=== PATIENT | female | born 1965 | race Caucasian/White ===

== ENCOUNTER → 2018-01-01 10:23 | Outpatient (CLI) | payer BC, SELFPAY ==
--- NOTE | 2018-01-01 10:32 | US_ITS ---
US abdomen limited HISTORY: Right upper quadrant pain. Nausea. ORDERING PHYSICIAN: Jadyn Pierce MD PATIENT AGE: 52 years Comparison: . May 30, 2016 right upper quadrant ultrasound PROCEDURE Sagittal, transverse and decubitus imaging of the gallbladder was performed. FINDINGS GALLBLADDER - No stones are evident. There is no gallbladder wall thickening. Common duct is normal in diameter. FINDINGS Pancreas. Appears satisfactory. No significant findings. Liver. No focal lesion. No biliary ductal dilatation. Minor diffuse fatty changes liver Portal vein normal Gallbladder. Sludge. 5 mm polyp again noted at the superior wall gallbladder. Similar to previous study. Upper normal gallbladder wall thickness again noted.. Right kidney appears normal in morphology. Normal in size 10 .5 cm length. Common duct normal diameter 4.1 mm at hilum of liver IMPRESSION: ... 1. There is a 5 mm gallbladder polyp again noted measures. ... No shadowing gallstones. Minimal sludge Gallbladder wall upper normal thickness . 2. Liver. Mild fatty changes.
--- NOTE | 2018-01-01 10:33 | NM_ITS ---
HEPATOBILIARY SCAN WITH FATTY MEAL/ENSURE ORDERING PHYSICIAN : Jadyn Pierce MD PATIENT AGE: 52 years GENDER: Female HISTORY: Right upper quadrant pain and nausea Following 8.26 millicuries Tc Choletec, images of the RUQ were obtained. There is prompt uptake of radionuclide by the liver which is grossly unremarkable. Small bowel is visualized. This initial portion of the study is normal. The gallbladder was allowed to fill out to 60 minutes. Fatty meal/1 can of ensure over administered with imaging performed over 60 minutes minutes. Thereafter. The obtain data was analyzed and reveals a 22% % abnormal low gallbladder ejection fraction (normal greater than 50%; borderline 35-50%). This is normal value No pain after fatty meal . Visual inspection which supports that there is minimal contraction of the gallbladder as well as,. IMPRESSION: Abnormal functioning gallbladder. 22% % % gallbladder ejection fraction, following fatty meal. No pain with fatty meal.
--- NOTE | 2018-01-01 11:02 | HMH.ITSHM ---
Current Home Medications as stated by this patient Maria Esther Kimbrough or underwriting sales representative. []LISIN[facility]
== END ==
PROVIDERS: PCP Family Medicine; Visit Provider Family Medicine
DX: R10.11 Right upper quadrant pain (principal)
CPT/HCPCS: 76705; 78226; A9537

== ENCOUNTER → 2018-02-19 09:43 | Outpatient (CLI) | payer BC, SELFPAY ==
[2018-02-19 10:01] LABS: Basophils % 0.5 % (0.1-2.0); Eosinophils # 0.1 K/mm3 (0.0-0.4); Eosinophils % 1.2 % (0.1-12.0); Hematocrit 39.9 % (37.0-47.0); Hemoglobin 13.2 g/dL (12.2-16.2); Lymphocytes # 2.5 K/mm3 (0.7-4.5); Lymphocytes % 32.1 % (10-50); Mean Corpuscular HGB Conc 33.1 g/dL (31.8-35.4); Mean Corpuscular Hemoglobin 29.4 pg (27.0-31.2); Mean Corpuscular Volume 88.9 fl (81-99); Monocytes # 0.4 K/mm3 (0.1-1.0); Monocytes % 5.6 % (1.7-9.3); Neutrophils # 4.8 K/mm3 (1.8-7.8); Neutrophils % 60.5 % (37.0-80.0); Platelet Count 334 K/mm3 (142-424); Red Blood Count 4.49 M/mm3 (4.20-5.40); Red Cell Distribution Width 13.8 % (11.5-17.5); White Blood Count 7.9 K/mm3 (4.8-10.8)
[2018-02-19 10:03] LABS: Urine Pregnancy, HCG Qual. Negative (Negative)
[2018-02-19 11:17] LABS: Alanine Aminotransferase 19 U/L (12-78); Albumin Level 3.6 gm/dL (3.4-5.0); Albumin/Globulin Ratio 0.9 (1.1-1.8); Alkaline Phosphatase 118 U/L (46-116); Anion Gap 14.3 mEq/L (5-15); Aspartate Amino Transferase 16 U/L (15-37); Bilirubin,Total 0.4 mg/dL (0.2-1.0); Blood Urea Nitrogen 16 mg/dL (7-18); Calcium 8.8 mg/dL (8.5-10.1); Carbon Dioxide 28 mmol/L (21.0-32.0); Chloride 101 mmol/L (98-107); Creatinine,Serum 0.85 mg/dL (0.55-1.02); Estimated Glomerular Filt Rate 70 ml/min (>60); GFR (African American) 85 ML/MIN (>60); Globulin 3.8 gm/dl (1.3-3.2); Glucose 117 mg/dL (74-106); Potassium 4.3 mmoL/L (3.5-5.1); Sodium 139 mmol/L (136-145); Total Protein,Serum 7.4 gm/dL (6.4-8.2)
== END ==
PROVIDERS: PCP Family Medicine; Visit Provider Surgery
DX: K82.9 Disease of gallbladder, unspecified (principal)
CPT/HCPCS: 36415; 80053; 81025; 85025; 93005

== ENCOUNTER → 2018-11-20 14:02 | Outpatient (CLI) | payer BC, SELFPAY | PROVIDERS: PCP Physician Assistant; Visit Provider Physician Assistant | DX: G47.30 Sleep apnea, unspecified (principal); I10 Essential (primary) hypertension; R06.83 Snoring; R53.83 Other fatigue | CPT/HCPCS: G0399 ==

== ENCOUNTER → 2018-12-20 19:55 | Outpatient (CLI) | payer BC, SELFPAY | PROVIDERS: PCP Family Medicine; Visit Provider Nurse Practitioner Family | DX: G47.30 Sleep apnea, unspecified (principal); I10 Essential (primary) hypertension; R40.0 Somnolence; R06.83 Snoring; R51 Headache; E66.9 Obesity, unspecified | CPT/HCPCS: 95810 ==

== ENCOUNTER → 2018-12-31 16:17 | Outpatient (CLI) | payer BC, SELFPAY ==
--- NOTE | 2018-12-31 16:22 | MM_ITS ---
PROCEDURE: MM DIG SCREENING MAMM BI W/CAD Patient Age:53Y CLINICAL INDICATION: SCREENING 53-year-old. Uses Premarin patch but previous stereotactic biopsy right breast. No new areas of concern clinically but noncontributory family history. COMPARISON: DIGMAMMS MAMMOGRAM SCREEN-CARE ASSISTANT N/C from 07/04/2006 DIGMAMMS MAMMOGRAM SCREEN-CARE ASSISTANT N/C from 09/20/2007 DMSB DIG MAMM-SCREEN CHATO W/CAD from 02/11/2016 TECHNIQUE: Standard CC and MLO images were obtained. R2 CAD reviewed. Additional axillary CC view included on left FINDINGS: Areas of moderately dense heterogeneous breast tissue bilaterally, most evident at the central and upper outer quadrant regions both breast. Wendy is somewhat limited in in areas of increased breast density is seen here. The digital mammogram from January 2016 most useful. The film screen studies prior to this suggest arm appear much denser and of limited comparison value Right breast: No new areas of significant concern when compared to prior mammograms-specifically the 2015 digital mammogram most useful Left breast. Overall architecture and small areas of density seen today seem to be similar to previous studies with no definitive change. No new particularly suspicious areas but overall bilateral follow-up 1 year adequate but should be encouraged and emphasized . Also in this dense breast if any palpable areas arise low threshold for ultrasound of would be recommended-as ultrasound is a useful complement/augment to mammography in areas of moderately dense heterogeneous breast as seen here areas IMPRESSION: No dominant nor suspicious new mass . Overall stable mammogram. Bilateral follow-up 1 year recommended and would be emphasized, encouraged. Areas moderate dense heterogeneous breast bilaterally again noted; mammography is of decreased sensitivity in this setting. Ultrasound can be useful augment/complement breast this density particular if any palpable areas arise BI-RAD Category: 2 Benign Finding(s) FOLLOW-UP: 1YR 1 Year Follow-up (A letter has been sent to the patient regarding results of the study.) Dictated by: Elbert Gaitan MD 01/03/2019 08:38 Electronically signed by Elbert Gaitan MD in [place] 01/03/2019 08:38
== END ==
PROVIDERS: PCP Family Medicine; Visit Provider Family Medicine
DX: Z12.31 Encounter for screening mammogram for malignant neoplasm of breast (principal)
CPT/HCPCS: 77067

== ENCOUNTER → 2020-01-03 10:17 | Outpatient (CLI) | payer BC, SELFPAY ==
--- NOTE | 2020-01-03 10:20 | MM_ITS ---
PROCEDURE: MM DIG SCREENING MAMM BI W/CAD Digital Breast Tomosynthesis Included CLINICAL INDICATION: SCREENING There is no personal or family history of breast cancer. There has been a previous biopsy right breast for benign disease. COMPARISON: MG DIGMAMMS MAMMOGRAM SCREEN-MOLECULAR BIOLOGY PROFESSOR N/C from 09/20/2007 MG DMSB DIG MAMM-SCREEN CHATO W/CAD from 02/11/2016 MG MM DIG SCREENING MAMM BI W/CAD from 12/31/2018 TECHNIQUE: Standard CC and MLO images and 3D Tomosynthesis was obtained. R2 CAD reviewed. FINDINGS: There is a markedly dense and heterogenic parenchymal pattern bilaterally. Romelia images are most helpful in this type of dense breast parenchyma. There are couple of benign-appearing microcalcifications right breast. There is a small nodular density lower central portion left breast only definitely seen on the romelia images 5 to 6 o'clock position. This likely is a cyst possibly small fibroadenoma but recommend the patient return for spot compression views and ultrasound for additional evaluation. IMPRESSION: Markedly dense and heterogenic parenchymal pattern with possible new nodular lesion left breast BI-RAD Category: 0 Need Additional Imaging Evaluation FOLLOW-UP: IMM Immediate Follow-up Recommended (A letter has been sent to the patient regarding results of the study.) Dictated by: Dr. Atul Perry MD 01/10/2020 12:01 Dr. Atul Perry MD in [place] 01/10/2020 12:01
[2020-01-03 12:57] LABS: Hemoglobin A1C 6.2 % (4.0-6.0)
[2020-01-03 13:47] LABS: Alanine Aminotransferase 34 U/L (12-78); Albumin Level 4.2 g/dl (3.5-5.0); Albumin/Globulin Ratio 1.4 (1.1-1.8); Alkaline Phosphatase 135 U/L (38-126); Anion Gap 13.9 mEq/L (5-15); Aspartate Amino Transferase 36 U/L (14-36); Bilirubin,Total 0.5 mg/dl (0.2-1.3); Blood Urea Nitrogen 15 mg/dl (7-17); Calcium 9.6 mg/dl (8.4-10.2); Carbon Dioxide 28 mmol/L (22.0-30.0); Chloride 99 mmol/L (98-107); Chol/HDL Ratio 4.3 (1-3.5); Cholesterol 219 mg/dl (140-200); Estimated Glomerular Filt Rate 87 ml/min (>60); GFR (African American) 106 ML/MIN (>60); Glucose 115 mg/dl (74-100); HDL Cholesterol 51 mg/dl (40-60); Potassium 3.9 mmoL/L (3.5-5.1); Sodium 137 mmol/L (136-145); Total Protein,Serum 7.2 g/dl (6.3-8.2); Triglycerides 306 mg/dl (30-150); VLDL Cholesterol 61 mg/dL (0-40)
[2020-01-03 13:58] LABS: Direct LDL Cholesterol 129.31 mg/dL (100-129)
== END ==
PROVIDERS: PCP Family Medicine; Visit Provider Nurse Practitioner Family
DX: Z12.31 Encounter for screening mammogram for malignant neoplasm of breast (principal)
CPT/HCPCS: 36415; 77063; 77067; 80053; 80061; 83036

== ENCOUNTER → 2020-04-08 13:42 | Outpatient (CLI) | payer BC, SELFPAY ==
--- NOTE | 2020-04-08 13:46 | MM_ITS ---
PROCEDURE: MM DIG MAMM DX UNILAT LT CAD Digital Breast Tomosynthesis Included CLINICAL INDICATION: ABN MAMM . COMPARISON: MG DMSB DIG MAMM-SCREEN CHATO W/CAD from 02/11/2016 MG MM DIG SCREENING MAMM BI W/CAD from 12/31/2018 MG MM DIG SCREENING MAMM BI W/CAD from 01/03/2020 US US BREAST LT COMPLETE from 04/08/2020 TECHNIQUE: Standard CC and MLO images and 3D Tomosynthesis was obtained. R2 CAD reviewed. Additional spot compression MLO and CC views were obtained. FINDINGS: The nodular density lower outer quadrant left breast is again seen unchanged in size and overall appearance from the previous mammogram 01/03/2020. Ultrasound performed the same date shows a small oval hypoechoic solid lesion at this location suggestive of a fibroadenoma with well-defined borders. IMPRESSION: Basically stable follow-up problem solving views and ultrasound findings suggesting a solid benign lesions such as a fibroadenoma and recommend the patient return for normal yearly screening in 6 months and the patient should probably have a follow-up ultrasound at that time as well to evaluate for interval stability. BI-RAD Category: 2 Benign Finding(s) FOLLOW-UP: 6M 6Month Follow-up to return to normal yearly screening schedule (A letter has been sent to the patient regarding results of the study.) Dictated by: Dr. Atul Perry MD 04/15/2020 07:38 Dr. Atul Perry MD in [place] 04/15/2020 07:38
--- NOTE | 2020-04-08 13:48 | US_ITS ---
PROCEDURE: US BREAST LT COMPLETE CLINICAL INDICATION: ABN MAMM COMPARISON: No exams were available for comparison FINDINGS: Diffuse somewhat heterogenic echogenicity is seen throughout the breast. There is a well-defined hypoechoic oval lesion at the 4 o'clock position mid breast measuring 1.2 cm in greatest long axis diameter with a well-defined interface between the lesion and the surrounding breast parenchyma and this likely is a small fibroadenoma. No other abnormality is seen. There are 2 normal appearing nodes in the axilla. IMPRESSION: Probable fibroadenoma but suggest the patient have a six-month follow-up ultrasound at the time of the next mammogram to assure interval stability Dictated by: Dr. Atul Perry MD 04/15/2020 07:41 Dr. Atul Perry MD in [place] 04/15/2020 07:41
== END ==
PROVIDERS: PCP Family Medicine; Visit Provider Family Medicine
DX: R92.8 Other abnormal and inconclusive findings on diagnostic imaging of breast (principal)
CPT/HCPCS: 76641; 77061; 77065; G0279

== ENCOUNTER → 2020-11-13 14:32 | Outpatient (CLI) | payer BC, SELFPAY ==
--- NOTE | 2020-11-13 14:38 | US_ITS ---
PROCEDURE: US BREAST LT COMPLETE CLINICAL INDICATION: ABN MAMM COMPARISON: US US BREAST LT COMPLETE from 04/08/2020 FINDINGS: Again noted is a well-defined hypoechoic solid nodule 4 o'clock position mid breast with homogeneous internal echoes and most consistent with a fibroadenoma. Is basically unchanged in size and overall appearance from the previous exam. There is a normal appearing node in the axilla. IMPRESSION: Stable benign-appearing solid nodule likely fibroadenoma recommend the patient continue with yearly screening mammography Dictated by: Dr. Atul Perry MD 11/20/2020 08:15 Dr. Atul Perry MD in [place] 11/20/2020 08:15
--- NOTE | 2020-11-13 14:38 | MM_ITS ---
PROCEDURE: MM DIG MAMM BI DX W/CAD Digital Breast Tomosynthesis Included CLINICAL INDICATION: ABN MAMM There is no personal or family history of breast cancer. There has been a previous biopsy right breast for benign disease. COMPARISON: MG MM DIG SCREENING MAMM BI W/CAD from 12/31/2018 MG MM DIG SCREENING MAMM BI W/CAD from 01/03/2020 MG MM DIG MAMM DX UNILAT LT CAD from 04/08/2020 US US BREAST LT COMPLETE from 04/08/2020 US US BREAST LT COMPLETE from 11/13/2020 ultrasound left breast 11/13/2020 TECHNIQUE: Standard CC and MLO images and 3D Tomosynthesis was obtained. R2 CAD reviewed. FINDINGS: Prominent diffuse heterogenic fibroglandular densities are seen throughout both breast as noted previously. The asymmetric nodular density lower left breast is stable and unchanged in size and appearance from the previous exam. Ultrasound performed same date shows well demarcated hypoechoic solid nodule 4 o'clock position mid breast with internal echoes unchanged in overall size and appearance from the previous exam and typical of a fibroadenoma. There is no new or suspicious lesion in either breast no suspicious microcalcifications. IMPRESSION: Diffusely dense parenchymal pattern stable benign-appearing nodular density left breast BI-RAD Category: 2 Benign Finding(s) FOLLOW-UP: 1YR 1 Year Follow-up (A letter has been sent to the patient regarding results of the study.) Dictated by: Dr. Atul Perry MD 11/20/2020 08:14 Dr. Atul Perry MD in [place] 11/20/2020 08:14
== END ==
PROVIDERS: PCP Family Medicine; Visit Provider Physician Assistant
DX: R92.8 Other abnormal and inconclusive findings on diagnostic imaging of breast (principal)
CPT/HCPCS: 76641; 77062; 77066; G0279

== ENCOUNTER → 2020-12-22 09:58 | Outpatient (CLI) | payer BC, SELFPAY | PROVIDERS: Visit Provider Surgery | DX: Z01.812 Encounter for preprocedural laboratory examination (principal); Z11.52 Encounter for screening for COVID-19; Z12.11 Encounter for screening for malignant neoplasm of colon | CPT/HCPCS: C9803; U0003; U0005 ==

== ENCOUNTER 2020-12-24 07:19 | Day surgery (SDC) | payer BC, SELFPAY ==
[2020-12-22 13:47] VITALS: BMI 39.3
[2020-12-24 07:40] VITALS: BP 133/65; PULSE 71; RESP 18; TEMP 36.8; O2SAT 96
[2020-12-24 08:28] LABS: Urine Pregnancy, HCG Qual. Negative (Negative)
[2020-12-24 08:34] VITALS: O2SAT 97
--- NOTE | 2020-12-24 09:14 | P.PCN_ITS ---
- Procedure: Date: 12/24/20 Patient Date of :: 1965 Procedure Performed:: Colonoscopy with polypectomy Indications:: Screening Performing Provider:: Dereje Latham MD Referring Provider:: . Sedation:: Monitored anesthesia care Procedure:: After informed consent was obtained the patient was taken to the endoscopy suite. Sedation ensued after the patient was transferred to the left lateral decubitus position. Pulse, blood pressure, and oxygen saturation were monitored throughout the procedure. Digital rectal exam revealed no significant ab normality. The colonoscope was placed in position. The entire colon was evaluated. The colonoscope was carefully removed and the patient was transferred to recovery in stable condition. Please see findings and specimens below for detail. Findings:: Bowel preparation moderate Moderate spasticity and lack of relaxation Mild hemorrhoidal cushions Scattered diverticulosis (mostly sigmoid) Complex lobulated polyps (see specimens) Specimens:: Sessile lobulated hepatic flexure polyp (cold snare) Lobulated sessile polyp at 20 cm (cold snare) Recommendations:: Timing of repeat colonoscopy is pending pathology but will likely be between 2-3 years secondary to nature of polyps, moderate bowel preparation, and moderate spasticity/lack of relaxation. Complications:: No immediate Estimated blood obtained (mL): 1
[2020-12-24 09:16] VITALS: BP 134/73; PULSE 76; RESP 16; TEMP 36.2; O2SAT 94
[2020-12-24 09:26] VITALS: BP 130/78; PULSE 70; RESP 16; O2SAT 97
[2020-12-24 09:36] VITALS: BP 135/68; PULSE 67; RESP 16; O2SAT 99
[2020-12-24 09:46] VITALS: BP 140/77; PULSE 66; RESP 16; O2SAT 99
--- NOTE | 2020-12-24 10:28 | P.PN_ITS ---
[facility] Anesthesia Checklist - Patient Identification Patient Identification: Arm Band, Verbal (Name & ) - Structural Data Admitted From: Home Planned Operative Procedure/s: Colonoscopy Consent for Planned Operative Procedure(s) Verified: Yes Verified Documents: Surgical Consent - NPO Status Verified Time NPO: 00:00 - Additional verifications Anesthesia Reactions: No Hx Blood Transfusions: No Blood Transfusion Reaction: No - Cardiovascular Assessment Heart Sounds: S1 & S2 - Airway Assessment C-Spine Mobility Assessed: Yes TMJ Mobility Assessed: Yes Dentition: Good Dentition - Neurological Assessment Level of Consciousness: Awake, Alert, Appropriate - Anesthesia Plan Anesthesia Risk discussed: Yes Anesthesia Type: General [facility] History I have reviewed the patient's past medical history: Yes Medical History: Reports:: Hypertension Denies:: Cancer, Diabetes Mellitus Type 1, Diabetes Mellitus Type 2, Internal Pacemaker, MRSA, Seizures *Have you ever received a pneumonia vaccine?: No *Have you received a flu vaccine this season?: Yes Other Medical History: Reports: Other. Denies: Blood Transfusion Reaction Anesthesia experience/problems:: none Laterality Cases: Bilateral: Tonsillectomy Other Surgeries: Yes: Cholecystectomy, , Other. No: Pacemaker Amputation: No Fractures: No - *Social History Last grade of school completed: Advanced degree Smoking Status: Never smoker Alcohol Intake: never Alcohol Intake Frequency:: other Substance Use Type: denies use *Occupational Status:: employed Housing: house Household Members: none *Travel in the last 8 weeks: None Family Hx:: Diabetes
== END 2020-12-24 09:46 | disposition home or self-care (01) ==
PROVIDERS: PCP Family Medicine; Visit Provider Surgery
PROC: 0DJD8ZZ Inspection of Lower Intestinal Tract, Via Natural or Artificial Opening Endoscopic (ICD-10-PCS; CPT 45385; principal; 2020-12-24 08:30)
DX: Z12.11 Encounter for screening for malignant neoplasm of colon (principal); K57.32 Diverticulitis of large intestine without perforation or abscess without bleeding; K58.9 Irritable bowel syndrome, unspecified; K63.5 Polyp of colon; K64.9 Unspecified hemorrhoids; I10 Essential (primary) hypertension; G47.33 Obstructive sleep apnea (adult) (pediatric); E66.9 Obesity, unspecified; Z68.39 Body mass index [BMI] 39.0-39.9, adult; Z79.899 Other long term (current) drug therapy
CPT/HCPCS: 45385; 81025

== ENCOUNTER → 2021-11-25 14:51 | Outpatient (CLI) | payer BC, SELFPAY ==
--- NOTE | 2021-11-25 14:57 | MM_ITS ---
PROCEDURE INFORMATION: Exam: MG Bilateral Screening 3D Mammography Exam date and time: 11/25/2021 2:52 PM Age: 55 years old Clinical indication: Screening examination TECHNIQUE: Imaging protocol: Bilateral Screening tomosynthesis and 2D mammography including computer-aided detection (CAD) when performed. COMPARISON: 1. MG MM DIG MAMM BI DX W/CAD 11/13/2020 2:34 PM 2. MG MM DIG MAMM DX UNILAT LT CAD 04/08/2020 1:46 PM FINDINGS: MAMMOGRAPHY: Breast composition: The breasts are heterogeneously dense, which may obscure small masses. Mass: None. Architectural distortion: None. Calcifications: No suspicious calcifications. Asymmetric density: None. Skin thickening: None. Axillary adenopathy: None. IMPRESSION: No mammographic evidence of malignancy. Annual screening is recommended unless otherwise clinically indicated. ASSESSMENT: BI-RADS Category 1: Negative
== END ==
PROVIDERS: PCP Family Medicine; Visit Provider Family Medicine
DX: Z12.31 Encounter for screening mammogram for malignant neoplasm of breast (principal)
CPT/HCPCS: 77063; 77067

== ENCOUNTER → 2022-03-10 08:56 | Outpatient (CLI) | payer BC, SELFPAY ==
--- NOTE | 2022-03-10 08:59 | XR_ITS ---
FINAL REPORT TECHNIQUE: Bone densitometry calculations of the lumbar spine and left hip were obtained. CLINICAL HISTORY: post menopausal FINDINGS: Using L1-4, the bone mineral density of the spine is 1.122 g/cm2, corresponding to T-score of 0.7. Using the left hip, the bone mineral density of the femoral neck is 0.759 g/cm2, corresponding to a T-score of -0.8. Using the right hip, the bone mineral density of the femoral neck is 0.716 g/cm2, corresponding to a T-score of -1.2. NOTE: T-score: Standard deviation compared with peak bone mass of young adult mean. *Following the recommendations of the International Society of Bone densitometry, classification of hip BMD is based on the lower of two T-scores; total hip or femoral neck. IMPRESSION: Normal bone mineral density of the lumbar spine and left hip. Diminished bone mineral density of the right hip consistent with osteopenia. Ten year fracture Risk data reports major osteoporotic fracture of 11% and hip fracture of 0.3%. Reviewed, Interpreted and Dictated by Jadyn Flood MD Transcribed by Randi Nunez Authenticated and [facility]
== END ==
PROVIDERS: PCP Nurse Practitioner Family; Visit Provider Nurse Practitioner Family
DX: Z13.820 Encounter for screening for osteoporosis (principal); Z78.0 Asymptomatic menopausal state
CPT/HCPCS: 77080

== ENCOUNTER → 2022-07-20 12:32 | Outpatient (CLI) | payer BC, SELFPAY ==
--- NOTE | 2022-07-20 12:44 | XR_ITS ---
FINAL REPORT CLINICAL HISTORY: FOOT PAIN FINDINGS: Three views of the right foot show no evidence of acute displaced fracture or dislocation of the visualized bony architecture. The joint spaces appear normal. A small plantar calcaneal spur is present. IMPRESSION: Unremarkable exam. Reviewed, Interpreted and Dictated by Jadyn Flood MD Transcribed by Karyn Pineda Authenticated and [facility]
== END ==
PROVIDERS: PCP Nurse Practitioner Family; Visit Provider Nurse Practitioner Family
DX: M79.671 Pain in right foot (principal)
CPT/HCPCS: 73630

== ENCOUNTER → 2022-12-05 15:15 | Outpatient (CLI) | payer BC, SELFPAY ==
--- NOTE | 2022-12-05 15:19 | MM_ITS ---
PROCEDURE INFORMATION: Exam: MG Bilateral Screening 3D Mammography Exam date and time: 12/05/2022 3:36 PM Age: 56 years old Clinical indication: Screening examination TECHNIQUE: Imaging protocol: Bilateral Screening tomosynthesis and 2D mammography including computer-aided detection (CAD) when performed. COMPARISON: 1. MG MM DIG SCREENING MAMM BI W/CAD 11/25/2021 2:52 PM 2. MG MM DIG MAMM BI DX W/CAD 11/13/2020 2:34 PM FINDINGS: MAMMOGRAPHY: Breast composition: The breasts are heterogeneously dense, which may obscure small masses. Mass: None. Architectural distortion: None. Calcifications: No suspicious calcifications. Asymmetric density: None. Skin thickening: None. Axillary adenopathy: None. IMPRESSION: No mammographic evidence of malignancy. Annual screening is recommended unless otherwise clinically indicated. ASSESSMENT: BI-RADS Category 1: Negative
== END ==
PROVIDERS: PCP Nurse Practitioner Family; Visit Provider Family Medicine
DX: Z12.31 Encounter for screening mammogram for malignant neoplasm of breast (principal)
CPT/HCPCS: 77063; 77067

== ENCOUNTER 2023-01-03 06:45 | Day surgery (SDC) | payer BC, SELFPAY ==
[2023-01-02 10:41] VITALS: BMI 40.2
[2023-01-03 06:54] VITALS: BP 140/70; PULSE 69; RESP 18; TEMP 36.3; O2SAT 94
--- NOTE | 2023-01-03 07:08 | P.PCN_ITS ---
Procedure: Date: 01/03/23 Patient Date of :: 1965 Procedure Performed:: Colonoscopy Indications:: History of colon polyps Note: Colonoscopy in December 2020 was somewhat complicated by moderate bowel pr eparation and spasticity/lack of relaxation. Mild hemorrhoidal cushions noted. Scattered diverticulosis also confirmed. Complex lobulated adenomatous polyps of the hepatic flexure and at 20 cm were excised. Performing Provider:: Dereje Latham MD Referring Provider:: . Sedation:: Monitored anesthesia care Procedure:: After informed consent was obtained the patient was taken to the endoscopy suit e. Sedation ensued after the patient was transferred to the left lateral decubitus position. Pulse, blood pressure, and oxygen saturation were monitored throughout the procedure. Digital rectal exam revealed no significant abnormality. The colonoscope was placed in position. The entire colon was evaluated. The colonoscope was carefully removed and the patient was transferred to recovery in stable condition. Please see findings and specimens below for detail. Findings:: Bowel preparation moderate Mild unchanged hemorrhoidal cushions Unchanged scattered diverticulosis Fairly profound lack of relaxation Specimens:: None Recommendations:: Repeat colonoscopy with extended bowel preparation in approximately 3 years secondary to continued limitations in visualization and history of colon polyps. Complications:: No immediate Estimated blood obtained (mL): 0 Colonoscopy Component Colonoscopy Component Was a colonoscopy performed during today's procedure?: Yes Recommended follow up colonoscopy of at least 10 years?: No If no, follow up colonoscopy recommended in ___ years?: (See above) Reason for not recommending >/= 10 yr follow-up interval?: (See above)
--- NOTE | 2023-01-03 07:18 | P.PNANES_ITS ---
[facility] Disclaimer: The information contained in this section may have been updated after the patient was seen, as this information can be updated by other users. Medical History HTN (hypertension) Surgical History History of History of cholecystectomy History of tonsillectomy Family History Other Family history of diabetes mellitus Social History Smoking Status: Never smoker second hand exposure: No alcohol intake: never substance use type: denies use current occupational status: employed Travel in the last 8 weeks: None household members: none housing: house current occupation: merchandise presentation associate current occupational exposures/hazards: No caffeine: Yes [facility] Anesthesia Checklist Patient Identification Patient Identification: Arm Band Structural Data Admitted From: Home Planned Operative Procedure/s: colonoscopy Consent for Planned Operative Procedure(s) Verified: Yes Verified Documents: Surgical Consent and History and Physical NPO Status Verified Time NPO: 00:00 Additional verifications Anesthesia Reactions: No Hx Blood Transfusions: No Blood Transfusion Reaction: No Airway Assessment Mallampati Score:: Class II C-Spine Mobility Assessed: Yes TMJ Mobility Assessed: Yes Dentition: Good Dentition Neurological Assessment Level of Consciousness: Awake and Alert Anesthesia Plan Anesthesia Risk discussed: Yes Anesthesia Plan: Verified ASA Class: II Anesthesia Type: MAC
[2023-01-03 07:28] VITALS: O2SAT 98
[2023-01-03 08:00] VITALS: BP 114/64; PULSE 73; RESP 18; TEMP 36.3; O2SAT 94
[2023-01-03 08:10] VITALS: BP 121/66; PULSE 71; RESP 18; O2SAT 96
[2023-01-03 08:20] VITALS: BP 109/69; PULSE 65; RESP 16; O2SAT 96
[2023-01-03 08:30] VITALS: BP 138/75; PULSE 63; RESP 16; O2SAT 96
== END 2023-01-03 08:35 | disposition home or self-care (01) ==
PROVIDERS: PCP Nurse Practitioner Family; Visit Provider Surgery
PROC: 0DJD8ZZ Inspection of Lower Intestinal Tract, Via Natural or Artificial Opening Endoscopic (ICD-10-PCS; CPT 45378; principal; 2023-01-03 07:30)
DX: Z12.11 Encounter for screening for malignant neoplasm of colon (principal); Z86.010 Personal history of colon polyps; K57.30 Diverticulosis of large intestine without perforation or abscess without bleeding
CPT/HCPCS: 45378; J2704

== ENCOUNTER 2024-03-22 13:16 | Outpatient (CLI) | payer BC, SELFPAY ==
--- NOTE | 2024-03-22 13:19 | MM_ITS ---
PROCEDURE INFORMATION: Exam: MG Bilateral Screening 3D Mammography Exam date and time: 03/22/2024 1:36 PM Age: 58 years old Clinical indication: Screening examination TECHNIQUE: Imaging protocol: Bilateral Screening tomosynthesis and 2D mammography including computer-aided detection (CAD) when performed. COMPARISON: 1. MG MM DIG SCREENING MAMM BI W/CAD 12/05/2022 3:36 PM 2. MG MM DIG SCREENING MAMM BI W/CAD 11/25/2021 2:52 PM FINDINGS: MAMMOGRAPHY: Breast composition: The breasts are heterogeneously dense, which may obscure small masses. Mass: None. Architectural distortion: None. Calcifications: No suspicious calcifications. Asymmetric density: None. Skin thickening: None. Axillary adenopathy: None. IMPRESSION: No mammographic evidence of malignancy. Annual screening is recommended unless otherwise clinically indicated. ASSESSMENT: BI-RADS Category 1: Negative.
== END 2024-03-22 23:59 | disposition home or self-care (01) ==
LOC: RAD 13:17
PROVIDERS: PCP Nurse Practitioner Family; Visit Provider Nurse Practitioner Family
DX: Z12.31 Encounter for screening mammogram for malignant neoplasm of breast (principal)
CPT/HCPCS: 77063; 77067